=== PATIENT | male | born 1960 ===

== ENCOUNTER → 2023-05-21 | Outpatient (CLI) | payer BC ==
[2023-05-22 10:55] LABS: Stool Occult Bld Immuno 1 Negative (NEGATIVE)
== END | disposition home or self-care (01) ==
LOC: LAB SHORT 12:30 → LAB 12:30
PROVIDERS: Family Medicine
DX: Z12.11 Encounter for screening for malignant neoplasm of colon (principal)
CPT/HCPCS: G0328